=== PATIENT | female | born 1935 | race Caucasian/White ===

== ENCOUNTER 2022-09-03 16:25 | Outpatient (REF) | payer MEDICARE, SELFPAY ==
[2022-09-03 19:44] LABS: Appearance Urine Cloudy (Clear); Bilirubin Urine Negative (Negative); Blood Urine Negative (Negative); Color Urine Yellow (Yellow); Glucose Urine Negative (Negative); Ketones Urine Negative (Negative); Leukocyte Esterase Urine 2+ (Negative); Nitrite Urine Negative (Negative); Protein Urine Negative (Negative); Specific Gravity Urine 1.025 (1.000-1.030); Urobilinogen Urine 0.2 (0.2-1.0)
[2022-09-03 20:05] LABS: Bacteria Urine Moderate; Squamous Epithelial Cell Urine Few (None-Few)
[2022-09-03 20:06] LABS: Calcium Oxalate Crystals Urine Few
== END 2022-09-03 16:26 | disposition home or self-care (01) ==
LOC: NPINS 16:25
PROVIDERS: PCP Nurse Practitioner Gerontology; Visit Provider Nurse Practitioner Gerontology
DX: R33.9 Retention of urine, unspecified (principal)
CPT/HCPCS: 81001; 87086

== ENCOUNTER 2022-11-01 09:47 | Outpatient (CLI) | payer MEDICARE, SELFPAY | END 2022-11-01 09:48 | disposition home or self-care (01) | PROVIDERS: PCP Nurse Practitioner Gerontology; Referring Provider Nurse Practitioner Gerontology; Visit Provider Obstetrics & Gynecology | DX: N81.9 Female genital prolapse, unspecified (principal); R33.9 Retention of urine, unspecified | CPT/HCPCS: 87086 ==

== ENCOUNTER 2023-05-02 15:31 | Outpatient (REF) | payer MEDICARE, SELFPAY ==
[2023-05-02 16:27] LABS: Appearance Urine Cloudy (Clear); Bilirubin Urine 2+ (Negative); Blood Urine 2+ (Negative); Color Urine Amber (Yellow); Glucose Urine Negative (Negative); Ketones Urine 1+ (Negative); Leukocyte Esterase Urine 1+ (Negative); Nitrite Urine Negative (Negative); Protein Urine 1+ (Negative); pH Urine 5.5 (5.0-8.5)
[2023-05-02 16:37] LABS: Squamous Epithelial Cell Urine Many (None-Few)
[2023-05-02 16:38] LABS: Amorphous Sediment Urine Few; Bacteria Urine Moderate; Mucus Urine Many; Other Sediment Urine Few
[2023-05-02 16:39] LABS: Coarse Granular Casts Urine Few; Hyaline Casts Urine Few (None-Few)
== END 2023-05-02 15:32 | disposition home or self-care (01) ==
LOC: NPINS 15:31
PROVIDERS: PCP Nurse Practitioner Gerontology; Visit Provider Nurse Practitioner Gerontology
DX: R53.1 Weakness (principal); R11.0 Nausea; R53.83 Other fatigue
CPT/HCPCS: 81001; 87086

== ENCOUNTER 2023-05-06 12:47 | Observation (INO) | payer MEDICARE, SELFPAY ==
[2023-05-06] VITALS (13 sets, daily range): BP systolic 106–140; BP diastolic 62–72; PULSE 92–106; RESP 18; TEMP 36.9–37.2; O2SAT 90–96; BMI 21.6; BMI 21.1
--- NOTE | 2023-05-06 15:15 | CRLHL7_ITS ---
For Patients: As a result of the Century Cures Act, medical imaging exams and procedure reports are released immediately into your electronic medical record. You may view this report before your referring provider. If you have questions, please contact your health care provider. INDICATION: Leg pain and swelling. TECHNIQUE: Ultrasound venous duplex lower right extremity. Compression venous exam was performed using john-scale, color Doppler, and spectral Doppler analysis. COMPARISON: None. FINDINGS: Deep veins: Extensive acute DVT involving the right femoral vein extending through the popliteal vein into the peroneal veins in the calf Superficial veins: Greater saphenous vein is fully compressible. No popliteal cyst. IMPRESSION: Extensive acute DVT involving the right femoral vein extending through the popliteal vein into the peroneal veins in the calf. Treating team is already aware of concurrent pulmonary embolism which was discussed with Dr. Berry at 4:20 p.m. on 05/06/2023. Dictated by Chet Mcdaniel MD @ 05/06/2023 4:51:05 PM (Electronically Signed)
--- NOTE | 2023-05-06 15:15 | CRLHL7_ITS ---
For Patients: As a result of the Century Cures Act, medical imaging exams and procedure reports are released immediately into your electronic medical record. You may view this report before your referring provider. If you have questions, please contact your health care provider. INDICATION: Midline abdomen pain. TECHNIQUE: CT abdomen and pelvis acquired with 58 cc Isovue 370 IV contrast. COMPARISON: None. FINDINGS: Lower chest: Scattered atelectasis. Moderate hiatal hernia. Incidental right lower lobe segmental/subsegmental pulmonary emboli. Liver: Multiple ill-defined hepatic hypodensities, measuring up to 7.7 centimeters in the right hepatic dome, suggestive of hepatic metastases. Gallbladder and bile ducts: Unremarkable. No stones or inflammation. No biliary dilatation. Pancreas: Ill-defined 3.7 centimeter pancreatic body/tail mass (series 2/image 45) Spleen: Unremarkable. Normal in size. No masses. Adrenal glands: Unremarkable. No nodules. Kidneys: Tiny ovoid densities in both kidneys, too small to characterize.. No suspicious masses, stones, or hydronephrosis. GI tract: Colonic diverticulosis. No bowel obstruction. Vasculature: Moderate aorto iliac arterial calcifications. Abdominal aorta is normal in caliber. Mesenteric arteries are patent. Lymph nodes: Multiple enlarged upper mesenteric and retroperitoneal lymph nodes. Peritoneum/Abdominal Wall: Diffuse peritoneal carcinomatosis. Small to moderate volume ascites. Small umbilical hernia containing fat and peritoneal disease Pelvis: Pessary. Mildly distended bladder. Bones: Subtle osseous irregularity of the right superior pubic rami (series 2/image 122) mild anterolisthesis of L5 on S1. Degenerative changes. IMPRESSION: Incidental right lower lobe segmental/subsegmental pulmonary emboli. Findings suggestive of metastatic disease, including hepatic metastasis, diffuse peritoneal carcinomatosis, and upper mesenteric/retroperitoneal lymphadenopathy. Additional ill-defined 3.7 centimeter pancreatic body/tail mass, also suggestive of malignancy, possibly primary tumor. Subtle osseous irregularity of the right superior pubic rami, likely osseous metastasis. Otherwise, no acute intra-abdominal/pelvic abnormality. Case discussed with Dr. Berry at 4:20 p.m. on 05/06/2023 Please note that all CT scans at this facility use dose modulation, iterative reconstruction, and/or weight-based dosing when appropriate to reduce radiation dose to as low as reasonably achievable. Dictated by Chet Mcdaniel MD @ 05/06/2023 4:21:29 PM (Electronically Signed)
--- NOTE | 2023-05-06 15:43 | ED_ITS ---
HPI - General Adult General Date Seen: 05/06/23 Chief complaint: Unspecified Complaint, Adult Stated complaint: very low hemoglobin Time Seen by Provider: 05/06/23 13:35 Source: patient Mode of arrival: wheelchair Limitations: no limitations History of Present Illness HPI narrative: Patient is an 88-year-old female presenting to the emergency department for anemia and weakness. She has a history of diabetes, hypertension, memory impairment. Over the past 10 days she has been crying about some abdominal pain and worsening weakness. She is typically able to walk around her apartment wi thout issues but now she gets very tired just walking from the bed to the kitchen. She has also been having some mild midline abdominal discomfort. The pain is not changed at all over the past week. Five days ago she had lab work drawn and resulted today showing to the hemoglobin of 7.4. She denies chest pain, shortness of breath, diarrhea, headache, vision changes, numbness. Denies having symptoms like this before. She is having some right leg swelling. She it is intermittent in nature has been going for several years but her and daughter both of noticed it is worse today. She has had some constipation but has not noticed any blood in her stool. Related Data Home Medications Medication Instructions Recorded Confirmed salicylic acid 17 %-ibuprofen 2 % 1 ea topical TID-QID PRN 11/01/22 05/06/23 topical gel acetaminophen 500 mg tablet 1,000 mg PO BID PRN 12/18/22 05/06/23 (Tylenol Extra Strength) amlodipine 5 mg tablet 5 mg PO DAILY 05/06/23 05/06/23 Allergies Allergy/AdvReac Type Severity Reaction Status Date / Time No Known Drug Allergies Allergy Verified 03/14/23 10:40 Review of Systems Status of ROS: Reports: 10 or more systems reviewed and unremarkable except as noted in History and below [facility] Medical History (Updated 05/06/23 @ 17:23 by Chandra Berry DO) High blood cholesterol ?E78.00 - Pure hypercholesterolemia, unspecified (ICD-10) Diabetes ?E11.9 - Type 2 diabetes mellitus without complications (ICD-10) Generalized anxiety disorder ?F41.1 - Generalized anxiety disorder (ICD-10) Kidney stones ?N20.0 - Calculus of kidney (ICD-10) Chronic fatigue syndrome ?G93.32 - Myalgic encephalomyelitis/chronic fatigue syndrome (ICD-10) Surgical History (Updated 11/03/22 @ 07:52 by Estefany Boyle MD) History of cataract surgery ?Z98.49 - Cataract extraction status, unspecified eye (ICD-10) Neck mass ?R22.1 - Localized swelling, mass and lump, neck (ICD-10) History of tonsillectomy ?Z90.89 - Acquired absence of other organs (ICD-10) Family History (Updated 11/03/22 @ 07:52 by Estefany Boyle MD) Father Stroke Other Coronary artery disease High blood pressure Exam Narrative: Exam Narrative: Const: Well-nourished, Well-developed, in mild distress Eyes: PERRL, no conjunctival injection, and symmetrical lids HENT: Atraumatic external nose and ears. Moist mucous membranes. Neck: Symmetric, trachea midline, No thyromegaly. CVS: RRR, No murmurs or gallops. Peripheral pulses 2+ and equal in all extremities RESP: Unlabored respiratory effort. Clear to auscultation bilaterally. GI: Mild midline abdominal tenderness, Nondistended, No rebound or guarding. MSK:Extremities w/o deformity, Normal Active ROM, +2 right lower extremity edema Skin: Warm, Dry. No rashes or lesions. Neuro: Normal Muscle tone, No focal neurological deficits. Psych: Awake, Alert, & Oriented x3. Appropriate mood and affect. Const: Vital Signs, click to edit/add: Vital Signs - 24 hr 05/06/23 13:09 05/06/23 16:55 05/06/23 17:00 Temperature 98.5 F Pulse Rate 93 94 Pulse Rate [Right Pulse Oximeter] 96 Respiratory Rate 18 Blood Pressure Blood Pressure [Ri ght Upper Arm] 129/68 Pulse Oximetry 95 94 93 Oxygen Delivery Me thod Room Air 05/06/23 17:01 05/06/23 17:15 05/06/23 17:30 Temperature Pulse Rate 92 94 97 Pulse Rate [Right Pulse Oximeter] Respiratory Rate Blood Pressure 140/69 H Blood Pressure [Ri ght Upper Arm] Pulse Oximetry 93 93 95 Oxygen Delivery Me thod 05/06/23 17:31 05/06/23 17:45 05/06/23 18:00 Temperature Pulse Rate 98 95 93 Pulse Rate [Right Pulse Oximeter] Respiratory Rate Blood Pressure 137/72 Blood Pressure [Ri ght Upper Arm] Pulse Oximetry 96 93 92 Oxygen Delivery Me thod Course Vital Signs Vital signs: Initial Vital Signs Temperature 98.5 F 05/06/23 13:09 Temperature Source Temporal Artery Scan 05/06/23 13:09 Pulse Rate 96 05/06/23 13:09 Respiratory Rate 18 05/06/23 13:09 Blood Pressure 129/68 05/06/23 13:09 Blood Pressure Mean 88 05/06/23 13:09 Blood Pressure Position Sitting 05/06/23 13:09 Pulse Oximetry 95 05/06/23 13:09 Oxygen Delivery Method Room Air 05/06/23 13:09 Vital Signs Temperature 98.5 F 05/06/23 13:09 Pulse Rate 96 05/06/23 13:09 Respiratory Rate 18 05/06/23 13:09 Blood Pressure 129/68 05/06/23 13:09 Pulse Oximetry 95 05/06/23 13:09 Oxygen Delivery Method Room Air 05/06/23 13:09 Temperature 98.5 F 05/06/23 13:09 Pulse Rate 93 05/06/23 18:01 Respiratory Rate 18 05/06/23 13:09 Blood Pressure 133/62 05/06/23 18:01 Pulse Oximetry 92 05/06/23 18:01 Oxygen Delivery Method Room Air 05/06/23 13:09 Medical Decision Making MDM Narrative Medical decision making narrative: Patient is an 88-year-old female presenting to the emergency department for anemia and weakness. She states she cannot function at home and she usually and has been gradually getting worse. This time a recheck hemoglobin. Order type and screen. She is having some midline abdominal pain so will order CT scan of the abdomen pelvis. She is having right lower extremity swelling and a ultrasound the right lower extremity ordered. Also order CMP, CBC, coags has flu/RSV, lipase, magnesium, troponin, urinalysis. Lab work returned with a white count 13.6 and hemoglobin of 7.9. CMP showed no obvious concerning abnormalities. Slightly elevated AST and alk-phos. Initial troponin came back at 0.36. His EKG showed a left bundle-branch block but no obvious signs of a STEMI. CT of the abdomen and pelvis shows diffuse metastatic disease. There was not any previous known cancer before this. Also shows segmental and subsegmental right lower lobe PE. Ultrasound of the leg shows a large DVT. I spoke to the family about this. I explained to them the situation now and the likely expected outcome. They state they think she is too weak to go through extensive treatment and would like her to have comfort care measures. She does have a POLST but only says DNR. Her paperwork she came with from [facility] does say comfort care measures. I spoke to the family about what they would like to do about admission for observation versus discharge. At this time concerning how the patient is too weak to function alone they would like her to stay in the hospital to start working on comfort care measures. Do this we will not treat her multiple abnormal findings. Lab Data Labs: Lab Results 05/06/23 05/06/23 05/06/23 Range/Units 15:15 15:28 15:40 WBC 13.67 H (4.50-11.00) K/uL RBC 2.53 L (4.00-5.20) m/uL Hgb 7.9 L* (12.0-16.0) gm/dL Hct 25.1 L (33.0-51.0) % MCV 99 (80-100) fL MCH 31 (26-34) pg MCHC 32 (32-36) gm/dL RDW Coeff of Mino 16.8 H (11.5-15.5) % Plt Count 228 (140-440) K/uL Neut % (Auto) 81.5 H (42.0-72.0) % Lymph % (Auto) 10.2 L (20-44) % Sully % (Auto) 6.9 (0.0-11.0) % Eos % (Auto) 0.5 (0.0-7.0) % Baso % (Auto) 0.1 (0.0-3.0) % Neut # (Auto) 11.10 H (1.7-7.0) K/uL Lymph # (Auto) 1.40 (0.90-2.90) K/uL Sully # (Auto) 0.90 (0.00-0.90) K/UL Eos # (Auto) 0.10 (0.00-0.50) K/uL Baso # (Auto) 0.00 (0.00-0.30) K/uL Abs Immat Gran (auto) 0.10 (0.00-0.30) K/uL Imm/Tot Granulo (auto) 0.8 % Sodium 133 L (135-149) mmol/L Potassium 3.8 (3.6-5.1) mmol/L Chloride 102 (96-114) mmol/L Carbon Dioxide 22 (20-32) mmol/L Anion Gap 9 (7-15) mEq/L BUN 22 (7-30) mg/dL Creatinine 0.5 (0.5-1.5) mg/dL Estimated Creat Clear 31.94 Estimated GFR 91 ml/min Glucose 138 H (60-115) mg/dL Calcium 8.6 (8.4-10.6) mg/dL Magnesium 2.1 (1.5-2.6) mg/dL Total Bilirubin 1.5 (0.1-1.5) mg/dL AST 36 H (12-35) U/L ALT 18 (4-35) U/L Alkaline Phosphatase 208 H (40-150) U/L Troponin I 0.36 H* (0.01-0.04) ng/mL Total Protein 7.1 (6.0-8.3) g/dL Albumin 3.7 (3.3-5.0) g/dL Lipase 64 (23-300) U/L Urine Color (Yellow) Urine Appearance (Clear) Urine pH (5.0-8.5) Ur Specific Elmer (1.000-1.030) Urine Protein (Negative) Urine Glucose (UA) (Negative) Urine Ketones (Negative) Urine Blood (Negative) Urine Nitrite (Negative) Urine Bilirubin (Negative) Urine Urobilinogen (0.2-1.0) Ur Leukocyte Esterase (Negative) Urine RBC (0-2) Urine WBC (0-5) Ur Squamous Epith Cells (None-Few) Amorphous Sediment (None) Urine Bacteria (None) SARS-CoV-2 (PCR) Negative SARS-CoV-2 (Negative) Influenza Type A (PCR) Negative PCR FLU A (Negative) Influenza Type B (PCR) Negative PCR FLU B (Negative) RSV (PCR) Negative PCR RSV (Negative) Blood Type O Positive Antibody Screen NEGATIVE Crossmatch (AHG) See Detail 05/06/23 Range/Units 16:37 WBC (4.50-11.00) K/uL RBC (4.00-5.20) m/uL Hgb (12.0-16.0) gm/dL Hct (33.0-51.0) % MCV (80-100) fL MCH (26-34) pg MCHC (32-36) gm/dL RDW Coeff of Mino (11.5-15.5) % Plt Count (140-440) K/uL Neut % (Auto) (42.0-72.0) % Lymph % (Auto) (20-44) % Sully % (Auto) (0.0-11.0) % Eos % (Auto) (0.0-7.0) % Baso % (Auto) (0.0-3.0) % Neut # (Auto) (1.7-7.0) K/uL Lymph # (Auto) (0.90-2.90) K/uL Sully # (Auto) (0.00-0.90) K/UL Eos # (Auto) (0.00-0.50) K/uL Baso # (Auto) (0.00-0.30) K/uL Abs Immat Gran (auto) (0.00-0.30) K/uL Imm/Tot Granulo (auto) % Sodium (135-149) mmol/L Potassium (3.6-5.1) mmol/L Chloride (96-114) mmol/L Carbon Dioxide (20-32) mmol/L Anion Gap (7-15) mEq/L BUN (7-30) mg/dL Creatinine (0.5-1.5) mg/dL Estimated Creat Clear Estimated GFR ml/min Glucose (60-115) mg/dL Calcium (8.4-10.6) mg/dL Magnesium (1.5-2.6) mg/dL Total Bilirubin (0.1-1.5) mg/dL AST (12-35) U/L ALT (4-35) U/L Alkaline Phosphatase (40-150) U/L Troponin I (0.01-0.04) ng/mL Total Protein (6.0-8.3) g/dL Albumin (3.3-5.0) g/dL Lipase (23-300) U/L Urine Color Dark yellow (Yellow) Urine Appearance Clear (Clear) Urine pH 5.5 (5.0-8.5) Ur Specific Elmer 1.015 (1.000-1.030) Urine Protein Trace A (Negative) Urine Glucose (UA) Negative (Negative) Urine Ketones 1+ A (Negative) Urine Blood 3+ A (Negative) Urine Nitrite Negative (Negative) Urine Bilirubin 2+ A (Negative) Urine Urobilinogen 1.0 (0.2-1.0) Ur Leukocyte Esterase 1+ A (Negative) Urine RBC 0-2 (0-2) Urine WBC 0-2 (0-5) Ur Squamous Epith Cells Few (None-Few) Amorphous Sediment Few A (None) Urine Bacteria None (None) SARS-CoV-2 (PCR) (Negative) Influenza Type A (PCR) (Negative) Influenza Type B (PCR) (Negative) RSV (PCR) (Negative) Blood Type Antibody Screen Crossmatch (AHG) Imaging Data CT scan abdomen and pelvis: Radiologist's impression: Incidental right lower lobe segmental/subsegmental pulmonary emboli. Findings suggestive of metastatic disease, including hepatic metastasis, diffuse peritoneal carcinomatosis, and upper mesenteric/retroperitoneal lymphadenopathy. Additional ill-defined 3.7 centimeter pancreatic body/tail mass, also suggestive of malignancy, possibly primary tumor. Subtle osseous irregularity of the right superior pubic rami, likely osseous metastasis. Otherwise, no acute intra-abdominal/pelvic abnormality. Case discussed with Dr. Berry at 4:20 p.m. on 05/06/2023 Please note that all CT scans at this facility use dose modulation, iterative reconstruction, and/or weight-based dosing when appropriate to reduce radiation dose to as low as reasonably achievable. Dictated by Chet Mcdaniel MD @ 05/06/2023 4:21:29 PM Venous US: Radiologist's impression: Extensive acute DVT involving the right femoral vein extending through the popliteal vein into the peroneal veins in the calf. Treating team is already aware of concurrent pulmonary embolism which was discussed with Dr. Berry at 4:20 p.m. on 05/06/2023. Dictated by Chet Mcdaniel MD @ 05/06/2023 4:51:05 PM ECG Data Attestation: I personally reviewed and interpreted this ECG as follows: Prior ECG tracings: not available for review Interpretation: Normal sinus rhythm with a rate of 89 beats per minute, left bundle branch block, normal axis, no ST or T-wave abnormalities Discharge Plan Discharge Clinical Impression: Anemia Qualifiers: Anemia type: unspecified type Qualified Code(s): D64.9 - Anemia, unspecified Metastatic cancer Qualifiers: Area of secondary neoplastic involvement: unspecified site Qualified Code(s): C79.9 - Secondary malignant neoplasm of unspecified site Pulmonary embolism Qualifiers: Pulmonary embolism type: unspecified Chronicity: acute Acute cor pulmonale presence: unspecified Qualified Code(s): I26.99 - Other pulmonary embolism without acute cor pulmonale Patient Disposition: Admitted As Observation Discharge Location: [facility]
[2023-05-06 15:52] LABS: Basophils Percent Auto 0.1 % (0.0-3.0); Eosinophils Percent Auto 0.5 % (0.0-7.0); Hematocrit 25.1 % (33.0-51.0); Immature Granulocytes Pct Auto 0.8 %; Lymphocytes Percent Auto 10.2 % (20-44); Mean Corpuscular HGB Conc 32 gm/dL (32-36); Mean Corpuscular Hemoglobin 31 pg (26-34); Mean Corpuscular Volume 99 fL (80-100); Monocytes Percent Auto 6.9 % (0.0-11.0); Neutrophils Percent Auto 81.5 % (42.0-72.0); Platelet Count* 228 K/uL (140-440); RDW Coefficient of Variation % 16.8 % (11.5-15.5); Red Blood Count 2.53 m/uL (4.00-5.20); White Blood Count* 13.67 K/uL (4.50-11.00)
[2023-05-06 15:55] LABS: Chloride* 102 mmol/L (96-114)
[2023-05-06 15:56] LABS: Albumin* 3.7 g/dL (3.3-5.0); Potassium* 3.8 mmol/L (3.6-5.1); Sodium* 133 mmol/L (135-149)
[2023-05-06 15:58] LABS: Anion Gap 9 mEq/L (7-15); Bilirubin Total* 1.5 mg/dL (0.1-1.5); Carbon Dioxide* 22 mmol/L (20-32); Creatinine* 0.5 mg/dL (0.5-1.5); Est. Creatinine Clearance* 31.94; Estimated Glomerular Filt Rate 91 ml/min
[2023-05-06 15:59] LABS: Alanine Aminotransferase* 18 U/L (4-35); Alkaline Phosphatase* 208 U/L (40-150); Aspartate Amino Transferase* 36 U/L (12-35); Blood Urea Nitrogen* 22 mg/dL (7-30); Calcium* 8.6 mg/dL (8.4-10.6); Glucose* 138 mg/dL (60-115); Lipase* 64 U/L (23-300); Magnesium* 2.1 mg/dL (1.5-2.6); Total Protein* 7.1 g/dL (6.0-8.3)
[2023-05-06 16:02] LABS: Hemoglobin* 7.9 gm/dL (12.0-16.0); Slide Review Reflex No
[2023-05-06 16:23] LABS: PCR FLU A Negative PCR FLU A (Negative); PCR FLU B Negative PCR FLU B (Negative); PCR RSV Negative PCR RSV (Negative); SARS PCR* Negative SARS-CoV-2 (Negative)
[2023-05-06 16:25] LABS: Troponin I* 0.36 ng/mL (0.01-0.04)
[2023-05-06 16:46] LABS: Appearance Urine Clear (Clear); Bilirubin Urine 2+ (Negative); Blood Urine 3+ (Negative); Color Urine Dark yellow (Yellow); Glucose Urine Negative (Negative); Ketones Urine 1+ (Negative); Leukocyte Esterase Urine 1+ (Negative); Nitrite Urine Negative (Negative); Protein Urine Trace (Negative); Specific Gravity Urine 1.015 (1.000-1.030); pH Urine 5.5 (5.0-8.5)
[2023-05-06 17:08] LABS: Amorphous Sediment Urine Few; RBC Urine 0-2 (0-2); Squamous Epithelial Cell Urine Few (None-Few); WBC Urine 0-2 (0-5)
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
--- NOTE | 2023-05-06 19:18 | PC.NURSE ---
Nurse Note [id number] Pt arrived to unit alert and oriented to person and place. Pleasant and cooperative. C/o pain to R ankle and R hip. VSS on RA. Hearing Screener settled pt in room, report given to NOC nurse.
[2023-05-06] MEDS: OXYCODONE 5 MG TABLET PO (21:13)
[2023-05-06] MEDS: SODIUM CHLORIDE 0.9 % (FLUSH) 10 ML SYRINGE 5 ML IVF (21:14)
[2023-05-07] MEDS: LORazepam 1 MG TABLET 0.5 MG PO (02:58)
--- NOTE | 2023-05-07 04:56 | PC.NURSE ---
Shift note: Pt with baseline dementia is on admission for comfort care r/t multiple findings including pulmonary emboli, peritoneal carcinoma, anemia, liver and kidney problems. Pt is very worried, anxious, and scared. Education about the plan of care given to both patient and daughter. Pt had difficulty falling asleep. Ativan 0.5mg given at 0300 to aid sleep and comfort. Diminished lungs sound with fine crackles noted. Pt had right pedal edema of 3+ r/t to previous diagnosis of DVT. Alert and oriented with occasional confusion and forgetfulness. Daughter is well informed about pt's condition and agreed to meet social work therapist tomorrow to discuss about possible hospice care placement.
[2023-05-07] MEDS: ACETAMINOPHEN 325 MG TABLET PO ×2 (09:06→19:00)
--- NOTE | 2023-05-07 11:43 | NUTR.NU ---
RDN with nutrition screen related to recent weight loss. Patient admitted for low hemoglobin. History of dementia. Weight history shows a 14% (19lbs) weight loss since November 2022. Per IDT, family is interested in pursing hospice. Not appropriate for nutrition interventions at this time.
[2023-05-07] MEDS: ONDANSETRON ODT 4 MG TAB PO (11:55)
--- NOTE | 2023-05-07 12:03 | PC.SOCIAL ---
Addendum entered by YING Napoles 05/07/23 12:13: E-mail to Renee Barahona ([facility]) to provide update on discharge plans per families request. Original Note: Discharge planning- Met with pt, pt's son, and pt's daughter to discuss discharge plans. Pt is from [facility], however, family is choosing to take pt home with pt's daughter (Valeria Lake) in [place], [place]. with [facility] in place. Family is planning to transport pt home. Family requested information on group home manager care options for [place]. Provided family with listing of group home manager care options in the [place] area. Phone call to Analia Duff ([phone]) at [facility]. Analia will start the referral and when completed it will be forwarded to the [place] office for services. Provided information verbally and faxed referral to [facility] at [phone]. Analia informs that [facility] can open for services at 10:00 am tomorrow (05/08/23) and she will call the family to confirm. [facility] will order pt a hospital bed and table and have it delivered to the home before tomorrow's admission. Met with pt's daughter Valeria and provided her with an update. Valeria informs that pt's son will transport pt tomorrow at 9:00 am. Valeria confirms that she has been in contact with [facility]. Provided update to MD and charge nurse. [facility] will need discharge orders and order to admit to hospice to be faxed upon discharge. Social work will follow up as needed.
--- NOTE | 2023-05-07 13:02 | PM.IMPN1 ---
Progress Note: A&P Assessment and plan (1) Metastatic cancer: Problem details: - pancreatic presumably primary - associated metastases throughout abdomen + PE/DVT - patient has mild nausea and anorexia, otherwise asymptomatic - would like to discharge home with family on hospice, appreciate assistance from SW team Status: Suspected (2) Pulmonary embolism: Status: Acute (3) Right leg DVT: Status: Acute (4) Anemia: Problem details: - normocytic, suspect secondary to abdominal cancer Status: Acute (5) Hypertension: Status: Chronic (6) Memory impairment: Status: Chronic Plan - likely home with hospice tomorrow - daughter and granddaughter updated at bedside, questions answered Subjective Date Seen: 05/07/23 Interval history: Cristine was admitted to the hospital last night for a new diagnosis of metastatic cancer (pancreatic presumably primary), DVT, PE, anemia. She and family have elected for comfort-focused treatment at this time. Social work is assisting with hospice referrals and discharge planning. Exam Narrative: Exam Narrative: Cristine is laying comfortably in bed, wearing [place] pajamas She has pitting edema of the RLE Const: Vital Signs, click to edit/add: Vital Signs - 24 hr 05/06/23 13:09 05/06/23 16:55 05/06/23 17:00 Temperature 98.5 F Pulse Rate 93 94 Pulse Rate [Left P ulse Oximeter] Pulse Rate [Right Pulse Oximeter] 96 Respiratory Rate 18 Blood Pressure Blood Pressure [Ri ght Arm] Blood Pressure [Ri ght Upper Arm] 129/68 Pulse Oximetry 95 94 93 Oxygen Delivery Me od Room Air 05/06/23 17:01 05/06/23 17:15 05/06/23 17:30 Temperature Pulse Rate 92 94 97 Pulse Rate [Left P ulse Oximeter] Pulse Rate [Right Pulse Oximeter] Respiratory Rate Blood Pressure 140/69 H Blood Pressure [Ri ght Arm] Blood Pressure [Ri ght Upper Arm] Pulse Oximetry 93 93 95 Oxygen Delivery Me thod 05/06/23 17:31 05/06/23 17:45 05/06/23 18:00 Temperature Pulse Rate 98 95 93 Pulse Rate [Left P ulse Oximeter] Pulse Rate [Right Pulse Oximeter] Respiratory Rate Blood Pressure 137/72 Blood Pressure [Ri ght Arm] Blood Pressure [Ri ght Upper Arm] Pulse Oximetry 96 93 92 [facility] 05/[facility] 18:01 05/06/23 20:33 05/06/23 21:00 Temperature 99 F Pulse Rate 93 Pulse Rate [Left P ulse Oximeter] 98 Pulse Rate [Right Pulse Oximeter] Respiratory Rate 18 Blood Pressure 133/62 Blood Pressure [Ri ght Arm] 106/64 Blood Pressure [Ri ght Upper Arm] Pulse Oximetry 92 96 90 Oxygen Delivery Me thod Room Air Room Air 05/06/23 23:00 Temperature Pulse Rate Pulse Rate [Left P ulse Oximeter] 106 H Pulse Rate [Right Pulse Oximeter] Respiratory Rate Blood Pressure Blood Pressure [Ri ght Arm] Blood Pressure [Ri ght Upper Arm] Pulse Oximetry Oxygen Delivery Me thod Labs Labs: Laboratory Results - last 24 hr 05/06/23 05/06/23 05/06/23 15:15 15:28 15:40 WBC 13.67 H RBC 2.53 L Hgb 7.9 L* Hct 25.1 L MCV 99 MCH 31 MCHC 32 RDW Coeff of [place] 16.8 H Plt Count 228 Neut % (Auto) 81.5 H Lymph % (Auto) 10.2 L [place] % (Auto) 6.9 Eos % (Auto) 0.5 Baso % (Auto) 0.1 Neut # (Auto) 11.10 H Lymph # (Auto) 1.40 [place] # (Auto) 0.90 Eos # (Auto) 0.10 Baso # (Auto) 0.00 Abs Immat Gran (auto) 0.10 Imm/Tot Granulo (auto) 0.8 Sodium 133 L Potassium 3.8 Chloride 102 Carbon Dioxide 22 Anion Gap 9 BUN 22 Creatinine 0.5 Estimated Creat Clear 31.94 Estimated GFR 91 Glucose 138 H Calcium 8.6 Magnesium 2.1 Total Bilirubin 1.5 AST 36 H ALT 18 Alkaline Phosphatase 208 H Troponin I 0.36 H* Total Protein 7.1 Albumin 3.7 Lipase 64 Urine Color Urine Appearance Urine pH Ur Specific [place] Urine Protein Urine Glucose (UA) Urine Ketones Urine Blood Urine Nitrite Urine Bilirubin Urine Urobilinogen Ur Leukocyte Esterase Urine RBC Urine WBC Ur Squamous Epith Cells Amorphous Sediment Urine Bacteria SARS-CoV-2 (PCR) Negative SARS-CoV-2 Influenza Type A (PCR) Negative PCR FLU A Influenza Type B (PCR) Negative PCR FLU B RSV (PCR) Negative PCR RSV Blood Type O Positive Antibody Screen NEGATIVE Crossmatch ([facility]) See Detail 05/06/23 16:37 WBC RBC Hgb Hct MCV MCH MCHC RDW Coeff of [place] Plt Count Neut % (Auto) Lymph % (Auto) [place] % (Auto) Eos % (Auto) Baso % (Auto) Neut # (Auto) Lymph # (Auto) [place] # (Auto) Eos # (Auto) Baso # (Auto) Abs Immat Gran (auto) Imm/Tot Granulo (auto) Sodium Potassium Chloride Carbon Dioxide Anion Gap BUN Creatinine Estimated Creat Clear Estimated GFR Glucose Calcium Magnesium Total Bilirubin AST ALT Alkaline Phosphatase Troponin I Total Protein Albumin Lipase Urine Color Dark yellow Urine Appearance Clear Urine pH 5.5 Ur Specific [place] 1.015 Urine Protein Trace A Urine Glucose (UA) Negative Urine Ketones 1+ A Urine Blood 3+ A Urine Nitrite Negative Urine Bilirubin 2+ A Urine Urobilinogen 1.0 Ur Leukocyte Esterase 1+ A Urine RBC 0-2 Urine WBC 0-2 Ur Squamous Epith Cells Few Amorphous Sediment Few A Urine Bacteria None SARS-CoV-2 (PCR) Influenza Type A (PCR) Influenza Type B (PCR) RSV (PCR) Blood Type Antibody Screen Crossmatch ([facility])
--- NOTE | 2023-05-07 14:44 | PC.NURSE ---
Addendum entered by Roxane Craig RN 05/08/23 10:01: Late entry charting error, dtr's name for this patient is Valeria, not Chelita as written below. Original Note: Please see meds provided to Cristine today on her JUN. Pivot to BSC w/assist of one. Remains on comfort cares, visiting with family members this afternoon, plan d/c to hospice tomorrow am, Alex will be in early to discharge her @ 0900 tomorrow. Equipment for hospice will be delivere to dtr Chelita's house today. Report will be given to oncdara shift RN.
--- NOTE | 2023-05-07 22:28 | PC.NURSE ---
End of Shift: Patient pleasant and cooperative. C/o pain in right leg 8/10 with activity and requested PRN Tylenol, declined oxycodone. Tolerating regular diet with no nausea. Up to bathroom with SBA.
[2023-05-08] MEDS: ACETAMINOPHEN 325 MG TABLET PO (04:47)
--- NOTE | 2023-05-08 06:51 | PC.NURSE ---
Shift note: Confused about surroundings and situation, reminders and reassurance provided. Pt is SBA to the bathroom, voiding, passing gas.
--- NOTE | 2023-05-08 08:07 | PM.DS1 ---
DS: Providers Provider Date Seen: 05/08/23 Date of admission: 05/06/23 18:00 Primary care physician: June Pascual DNP, RN Admitting Clinician: Tamiko Garcia MD Consults: Attending Physician on discharge: Vilma Johnson MD Date of Discharge: 05/08/23 DS: Diagnosis Discharge Diagnosis (1) Metastatic cancer: Status: Suspected Problem details: - pancreatic presumably primary - associated metastases throughout abdomen + PE/DVT - patient has mild nausea and anorexia, otherwise asymptomatic - discharged home with family on hospice, appreciate assistance from team (2) Anemia: Status: Acute Problem details: - normocytic, suspect secondary to abdominal cancer (3) Pulmonary embolism: Status: Acute (4) Right leg DVT: Status: Acute DS: Summary Hospital Course Hospital Course: Cristine is a delightful 88-year-old female who presented to the hospital on 05/06 for right lower extremity swelling, In addition to incidental anemia noted on screening labs. Emergency room workup revealed pulmonary embolism, right lower extremity DVT, and metastatic cancer throughout her abdomen. Patient was minimally symptomatic with no concerns of pain. She and family elected to not pursue aggressive workup or treatment; they requested discharge home with hospice. Son transferred patient home upon discharge on 05/08/23. Status at Discharge Functional status at discharge: independent ambulation Time Spent with Patient Time attestation: Total time spent providing and/or coordinating discharge services: Time spent: Greater than 30 minutes Specific discharge activities: Family updates, care coordination with referral teams, medication reconciliation Exam Narrative: Exam Narrative: Cristine is dressed and appears comfortable, sitting in bedside chair. She has edema of RLE noted. DS: Data Data Completed and Pending Labs on day of discharge: Preliminary micro results at discharge 05/06/23 Unknown Urine Culture - Preliminary Urine,Clean Catch < 50,000 COL/ML MIXED GRAM POSITIVE ANTHONY ISOLATED NO FURTHER WORKUP 05/06/23 16:50 Blood Culture - Preliminary Blood Discharge Plan Discharge Disposition: Xfer Home- (Hospice) Date of Admission: 05/06/23 18:00 Attending Provider on Discharge: Vilma Johnson Primary Care Provider: June Pascual Anticipated Discharge Date/Time: 05/08/23 09:00 Discharge Medications: Discontinued amlodipine 5 mg tablet 5 mg PO DAILY omega 2-qjs-fot-fish oil [Fish Oil] 1,000 mg (120 mg-180 mg) capsule 1 cap PO DAILY cyanocobalamin (vitamin B-12) 1,000 mcg capsule 1,000 mcg PO DAILY Discharge Orders: Discharge Order (Routine); Ordered 05/08/23 Ordered By: Vilma Johnson Additional Instructions: Hospice will meet you at the house today for admission. Activity Level: No strenuous activity Discharge Diet: Regular Follow Up Appointments: June Pascual DNP, RN [Primary Care Provider] - Forms: [facility] Info Instructions
--- NOTE | 2023-05-08 09:57 | PC.NURSE ---
Pt dressed and tolerated 100% of breakfast. She is confused about while she is here, reoriented by primary RN. Eval by Dr. Johnson. D/C papers and teaching completed. Discharged to hospice care via w/c with personal belongings and son as transportation.
== END 2023-05-08 09:05 | disposition hospice, home (50) ==
LOC: ED 17:23 → MEDSURG 05-07 08:05
PROVIDERS: Admitting Provider Family Medicine; Emergency Provider Student in an Organized Health Care Education/Training Program; PCP Nurse Practitioner Gerontology; Visit Provider Family Medicine
DX: I26.99 Other pulmonary embolism without acute cor pulmonale (principal); D64.9 Anemia, unspecified; C79.9 Secondary malignant neoplasm of unspecified site; I82.401 Acute embolism and thrombosis of unspecified deep veins of right lower extremity; M25.551 Pain in right hip; R22.41 Localized swelling, mass and lump, right lower limb; R10.9 Unspecified abdominal pain; I10 Essential (primary) hypertension; R41.3 Other amnesia; F03.90 Unspecified dementia, unspecified severity, without behavioral disturbance, psychotic disturbance, mood disturbance, and anxiety; R11.0 Nausea; R53.1 Weakness; R63.0 Anorexia; I44.7 Left bundle-branch block, unspecified; M81.0 Age-related osteoporosis without current pathological fracture; E11.9 Type 2 diabetes mellitus without complications; G93.32 Myalgic encephalomyelitis/chronic fatigue syndrome; Z98.49 Cataract extraction status, unspecified eye; Z90.89 Acquired absence of other organs; Z51.5 Encounter for palliative care
CPT/HCPCS: 36415; 74177; 80048; 80053; 81001; 83690; 83735; 84443; 84484; 85025; 86850; 86900; 86901; 86922; 87040; 87081; 87086; 87631; 93005; 93971; 99284; 99285; A9270; G0378; Q9967